=== PATIENT | male | born 2000 | race Caucasian/White ===

== ENCOUNTER 2022-11-04 20:01 | Emergency (ER) | payer BC, SELFPAY ==
[2022-11-04 20:02] VITALS: BP 138/74; PULSE 84; RESP 16; TEMP 36; O2SAT 97; BMI 29.1
--- NOTE | 2022-11-04 20:16 | EX.ED.UPPERE ---
HPI <JOYA Sagastume - Last Filed: 11/04/22 20:55> History of Present Illness Chief Complaint: Upper Extremity Injury Narrative Narrative: Patient presenting today with a small laceration to the tip of his left third finger he got this evening. 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 He washed it out immediately but was unable to control the bleeding. He is not sure when he received his last tetanus shot. Denies the use of blood thinners and any other injury. PFSH <JOYA Sagastume - Last Filed: 11/04/22 20:55> [facility] Medical History no medical history Home Medications NK 11/04/22 [History Last Taken Unknown] Allergy/AdvReac Type Severity Reaction Status Date / Time No Known Allergies Allergy Verified 11/04/22 20:01 Surgical History no surgical history Social History Smoking Status: Never smoker ROS <JOYA Sagastume - Last Filed: 11/04/22 20:55> ROS ED Constitutional Constitutional ED: Denies chills or fever(s) Cardiovascular Cardiovascular: Denies chest pain Respiratory/Chest Respiratory/Chest: Denies cough or dyspnea Gastrointestinal Gastrointestinal: Denies abdominal pain, nausea or vomiting Musculoskeletal Musculoskeletal: Denies arthralgias or myalgias Integumentary Reports laceration; Denies abscess or rash Neurologic Neurologic: Denies weakness EXAM <JOYA Sagastume - Last Filed: 11/04/22 20:55> Physical Exam Const Vital Signs: 11/04/22 20:02 Temperature 96.8 F L Temperature Source Temporal Pulse Rate 84 Respiratory Rate 16 Blood Pressure 138/74 H Blood Pressure Mean 95 Pulse Ox 97 Oxygen Delivery Method Room Air Positive well nourished, well developed and no apparent distress General Appearance ED: well developed HEENT Reports normocephalic and head/scalp atraumatic Mouth ED: Yes moist mucous membranes normal Eyes PERRL and EOMs intact bilaterally Neck full ROM and supple Chest Wall inspection of chest normal Resp normal respiratory effort and clear to auscultation bilaterally Cardio regular rate and regular rhythm GI soft to palpation, non-tender, non-distended and no masses Back/Spine normal ROM and normal to inspection Extremity normal to inspection and full ROM Extremity Narrative: Small 1.5 cm subcutaneous laceration to the tip of the left third finger. Radial pulses 2+ bilaterally, sensation intact, good capillary refill in the upper extremities. Neuro oriented x3, CN's II-XII intact bilaterally, moves all extremities, no focal motor deficits and no sensory deficits noted Sensorium / Orientation: awake and alert Motor Exam: strength 5/5 throughout Psych mental status grossly normal and thought process normal Skin no rashes or lesions noted and no wounds MDM <JOYA Sagastume - Last Filed: 11/04/22 20:55> [facility] Narrative Medical decision making narrative: Patient presenting with a 1.5 cm subcutaneous laceration to the tip of his left third finger that he got this evening at work. See procedure note. This was closed with 3 sutures, bacitracin ointment was applied, and the wound was dressed. Tetanus has been updated. Patient has been educated on signs of infection to look out for. He has been encouraged to keep the area clean and covered. He will be discharged home in stable condition and is comfortable with plan. <Dr. Santiago Renee MD - Last Filed: 11/04/22 21:02> [facility] Treatment and Re-Evaluation Narrative: Seen and evaluated independently and in conjunction with physician executive administrative assistant. Agree with notes above unless documented otherwise. Sustained laceration to the tip of the left middle finger due to an injury at work on a conveyor belt. [id number]. No other injuries. 1.5 cm laceration to the fingertip left middle finger, no nail injury. Full range of motion no tendon injury. No foreign body seen. I supervised repair of this laceration which was done by the physician executive administrative assistant. 3 interrupted simple sutures placed, sutures out in 7 to 10 days. Patient left prior to receiving discharge papers. Procedures <JOYA Sagastume - Last Filed: 11/04/22 20:55> Lacerations laceration: Length: 1.5 cm Depth: Sub Q Shape: Linear Prep: Chlorhexadine Laceration repair: Digital block, Irrigated and Lidocaine Suture Information: Ethilon (5-0) Comment: 3 sutures were placed. Discharge Plan Triage Chief Complaint: Upper Extremity Injury ED Midlevel Provider: Stacia Acevedo ED Provider: Santiago Renee Dx/Rx/DC Orders Clinical Impression: Laceration of left middle finger w/o foreign body w/o damage to nail, Immunization, tetanus-diphtheria Instructions: ED Laceration: All Closures Prescriptions: No Action NK Primary Care Provider: David Saenz Referrals: Ronny Flores MD [Med Staff - Active Staff] - As Needed Corporate,Care [Group of Physicians] - 10 Day for suture removal Activity Restrictions/Additional Instructions: Follow-up to have the stitches removed in 7 to 10 days. Please return for any signs of infection such as increased redness, puslike discharge, swelling to the area, fever. Keep the area clean and covered with a dry bandage. I have given you a referral for a PCP. Disposition Disposition: Home, Self Care Discharge Date/Time: 11/04/22 20:55
[2022-11-04] MEDS: Diphth,Pertuss(Acell),Tet Vac 0.5 ML Vial IM (20:18)
[2022-11-04] MEDS: Lidocaine 1% (20 ml mdv) 20 ML Vial 7 ML INFILT (20:53)
--- NOTE | 2022-11-04 20:55 | NURSING ---
patient left before receiving DC instructions
== END 2022-11-04 20:55 | disposition home or self-care (01) ==
PROVIDERS: Emergency Provider Emergency Medicine; PCP Pediatrics; Visit Provider Emergency Medicine
DX: S61.213A Laceration without foreign body of left middle finger without damage to nail, initial encounter (principal); S69.92XA Unspecified injury of left wrist, hand and finger(s), initial encounter; Z23 Encounter for immunization; W31.89XA Contact with other specified machinery, initial encounter; Y99.0 Civilian activity done for income or pay
CPT/HCPCS: 12001; 99281 ×2; 90471; 90715; 99282